=== PATIENT | female | born 1960 ===

== ENCOUNTER 2018-11-11 14:29 | Inpatient (IN) | payer MEDICAID ==
[~2018-11-11] VITALS: Ht 157.5 cm; Wt 85.5 kg
[~2018-11-11 14:29] MED LIST: ALBU8.5H8 INH; ASPI-496 PO; CETI10TA18 PO; IPRA4AER INH; LAMO25TA52 PO
--- NOTE | 2018-11-11 14:33 | NUR ---
PT C/O PAIN IN THE RIGHT LOWER ABD AND RIGHT LOWER BACK WOTH N/V THAT STARTED YESTERDAY
--- NOTE | 2018-11-11 14:43 | NUR ---
PT STATE SHE WAS AT [facility] YESTERDAY AND WAS DIAGNOSED WITH KIDNEY STONES. SHE STATES [facility] GAVE HER A RX FOR IBUPROFEN FOR PAIN BUT HASNT BEEN ABLE TO GO TO THE PHARMACY TO FILL IT.
[2018-11-11] MEDS ORDERED: KETOROLAC 60 MG/2 ML IM ONE (15:00)
[2018-11-11] MEDS ORDERED: KETOROLAC 30 MG/1 ML ONE (15:00)
--- NOTE | 2018-11-11 15:09 | NUR ---
pt ambulatory to bathroom with steady gait. pt medicated for pain per emar.
[2018-11-11 15:33] LABS: BASOPHILS # (AUTO) 0.02 x10^3/uL (0-0.1); BASOPHILS % (AUTO) 0 % (0-1); EOSINOPHILS % (AUTO) 0 % (1-7); LYMPHOCYTES % (AUTO) 15 % (22-44); MD NO; MEAN CORPUSCULAR HEMOGLOBIN 28.7 pg (27.0-34.8); MEAN CORPUSCULAR HGB CONC 32.6 g/dL (32.4-35.8); MEAN CORPUSCULAR VOLUME 88.1 fL (80-100); MEAN PLATELET VOLUME 8.9 fL (7.4-10.4); MONOCYTES # (AUTO) 1.44 x10^3/uL (0.2-0.8); MONOCYTES % (AUTO) 16 % (2-9); NEUTROPHILS # (AUTO) 6.05 x10^3/uL (1.8-6.8); NEUTROPHILS % (AUTO) 69 % (42-75); PLATELET COUNT 163 x10^3/uL (130-400); RED BLOOD COUNT 4.86 x10^6/uL (3.82-5.3); RED CELL DISTRIBUTION WIDTH 14.7 % (9.6-15.2)
[2018-11-11 15:38] LABS: MICROSCOPIC AUTO
[2018-11-11 15:41] LABS: CULTURE INDICATED? YES
[2018-11-11 15:41] LABS: ANION GAP 7 mmol/L (5-15); CALCIUM 8.6 mg/dL (8.5-10.1); CHLORIDE 106 mmol/L (98-107); CREATININE 0.84 mg/dL (0.55-1.02)
--- NOTE | 2018-11-11 15:54 | NUR ---
PT RESTING ON GURNEY. REPORTS PAIN HAS IMPROVED FROM 8/10 TO 0/10.
[2018-11-11] MEDS ORDERED: SODIUM CHLORIDE FLUSH 10ML SYR IVF ONE (17:00)
[2018-11-11] MEDS ORDERED: CEFTRIAXONE PMX 1GM/50ML 50 ML IV ONE (17:00)
--- NOTE | 2018-11-11 17:06 | NUR ---
pt ambulatory to and from ed restroom in NAD, pt to CT at this time
[2018-11-11] MEDS ORDERED: CEFTRIAXONE PMX 1GM/50ML 50 ML ONE (17:32)
--- NOTE | 2018-11-11 18:02 | NUR ---
PIV placed. pt tolerated procedure well. medicated per emar. pain is reported as 0/10. pt to be admitted.
--- NOTE | 2018-11-11 19:12 | NUR ---
report to surgery
[2018-11-11] MEDS ORDERED: HYDROmorphone 2 MG/ML, 1ML IVPush PRN (20:00)
[2018-11-11] MEDS ORDERED: ONDANSETRON 2MG/ML, 2ML IV PRN (20:00)
[2018-11-11] MEDS ORDERED: FENTANYL PF 100 MCG/2ML IV PRN (20:00)
[2018-11-11] MEDS ORDERED: LABETALOL 5MG/ML, 20ML IV PRN (20:00)
[2018-11-11] MEDS ORDERED: MEPERIDINE/PF 25MG/0.5ML IVPush PRN (20:00)
[2018-11-11] MEDS ORDERED: ACETAMINOPHEN 325 MG TABLET PO PRN (20:00)
[2018-11-11] MEDS ORDERED: OXYcodone 5 MG/5 ML ORAL.SOL UDC PO PRN (20:00)
[2018-11-11] MEDS ORDERED: PROMETHAZINE 25 MG/ML, 1ML IV PRN (20:00)
[2018-11-11] MEDS ORDERED: hydrALAzine 20 MG/ML, 1ML IV PRN (20:00)
[2018-11-11] MEDS ORDERED: MIDAZOLAM 1 MG/ML, 2ML ONE (20:16)
[2018-11-11] MEDS ORDERED: FENTANYL PF 100 MCG/2ML ONE (20:16)
[2018-11-11] MEDS ORDERED: DEXAMETHASONE 4 MG/ML, 1ML ONE (20:30)
[2018-11-11] MEDS ORDERED: SUCCINYLCHOLINE 20 MG/ML, 10ML ONE (20:40)
[2018-11-11] MEDS ORDERED: PROPOFOL 10 MG/ML, 20ML ONE (20:40)
[2018-11-11] MEDS ORDERED: METOPROLOL 1 MG/ML, 5ML ONE (20:40)
[2018-11-11] MEDS ORDERED: ROCURONIUM 10MG/ML,5ML ONE (20:40)
[2018-11-11] MEDS ORDERED: ONDANSETRON 2MG/ML, 2ML ONE (20:50)
[2018-11-11] MEDS ORDERED: OXYcodone 5 MG/5 ML ORAL.SOL UDC ONE (21:59)
[2018-11-11] MEDS ORDERED: ACETAMINOPHEN 650 MG/20.3 ML UDC ONE (22:00)
[2018-11-11 22:55] VITALS: BP 119/76
[2018-11-11] MEDS: SODIUM CHLORIDE 0.9% 1,000 ML IV SCH (23:16)
[2018-11-12] VITALS: BP 123/71
[2018-11-12 00:44] LABS: AMPHETAMINE SCREEN, URINE Negative (Negative); BARBITURATE SCREEN, URINE Negative (Negative); BENZODIAZEPINE SCREEN, URINE Positive (Negative); CANNABINOID SCREEN, URINE Negative (Negative); COCAINE SCREEN, URINE Negative (Negative); METHADONE SCREEN, URINE Negative (Negative); OPIATE SCREEN, URINE Positive (Negative)
[2018-11-12] MEDS: SODIUM CHLORIDE 0.9% 1,000 ML IV SCH ×3 (05:22→22:59)
[2018-11-12 05:27] LABS: BASOPHILS # (AUTO) 0.02 x10^3/uL (0-0.1); BASOPHILS % (AUTO) 0 % (0-1); EOSINOPHILS % (AUTO) 0 % (1-7); LYMPHOCYTES # (AUTO) 0.73 x10^3/uL (1-3.4); LYMPHOCYTES % (AUTO) 9 % (22-44); MD NO; MEAN CORPUSCULAR HEMOGLOBIN 28.8 pg (27.0-34.8); MEAN CORPUSCULAR HGB CONC 32.5 g/dL (32.4-35.8); MEAN CORPUSCULAR VOLUME 88.4 fL (80-100); MEAN PLATELET VOLUME 8.6 fL (7.4-10.4); MONOCYTES # (AUTO) 0.96 x10^3/uL (0.2-0.8); MONOCYTES % (AUTO) 12 % (2-9); NEUTROPHILS # (AUTO) 6.14 x10^3/uL (1.8-6.8); NEUTROPHILS % (AUTO) 78 % (42-75); PLATELET COUNT 150 x10^3/uL (130-400); RED BLOOD COUNT 4.46 x10^6/uL (3.82-5.3)
[2018-11-12 05:36] LABS: ANION GAP 3 mmol/L (5-15); CALCIUM 8.5 mg/dL (8.5-10.1); CHLORIDE 111 mmol/L (98-107); CREATININE 0.73 mg/dL (0.55-1.02)
[2018-11-12 05:48] LABS: HEMOGLOBIN A1C 6.2 % (4.2-6.3)
[2018-11-12 07:08] VITALS: BP 124/74
[2018-11-12] MEDS: CEFTRIAXONE PMX 1GM/50ML 50 ML IV SCH (10:20)
[2018-11-12 14:00] VITALS: BP 118/65
[2018-11-12 18:54] VITALS: BP 156/71
[2018-11-13 02:18] VITALS: BP 139/73
[2018-11-13] MEDS: SODIUM CHLORIDE 0.9% 1,000 ML IV SCH (05:24)
[2018-11-13 06:52] VITALS: BP 132/88
[2018-11-13] MEDS: CEFTRIAXONE PMX 1GM/50ML 50 ML IV SCH (10:09)
[2018-11-13] MEDS ORDERED: CEFD300C37 PO (12:01)
[2018-11-13 12:16] VITALS: BP 146/85
[2018-11-13] MEDS ORDERED: SODIUM CHLORIDE 0.9% 1,000 ML IV SCH (18:50)
== END 2018-11-13 12:55 | disposition home or self-care (01) | DRG 661 ==
LOC: ED 18:07 → EDIP 18:37 → 4NOR 22:17 → DCLOUNGE 11-13 12:38
PROVIDERS: ADMIT Internal Medicine; ATTEND Internal Medicine
PROC: 0TC78ZZ Extirpation of Matter from Left Ureter, Via Natural or Artificial Opening Endoscopic (ICD-10-PCS; 2018-11-11)
PROC: 0T778DZ Dilation of Left Ureter with Intraluminal Device, Via Natural or Artificial Opening Endoscopic (ICD-10-PCS; principal; 2018-11-11 19:00)
DX: N13.6 Pyonephrosis (principal); E11.9 Type 2 diabetes mellitus without complications; F15.10 Other stimulant abuse, uncomplicated; F17.210 Nicotine dependence, cigarettes, uncomplicated; F41.1 Generalized anxiety disorder; Z88.0 Allergy status to penicillin
CPT/HCPCS: 36415; 74018; 74176; 76000; 80048; 80307; 81001; 82040; 82360; 83036; 85025; 87077; 87086; 87186; 88300; 96372; 99285; C1726; G0378; J0696; J1100; J1885; J2250; J2405; J2704; J3010; C1758; C1769; C2617; J0330; J7030

== ENCOUNTER 2018-11-17 05:57 | Emergency (ER) | payer MEDICAID ==
[~2018-11-17] VITALS: Ht 157.5 cm; Wt 85.0 kg
[~2018-11-17 05:57] MED LIST changes: +CEFD300C37 PO
[2018-11-17 06:06] VITALS: BP 142/92
[2018-11-17] MEDS ORDERED: KETOROLAC 30 MG/1 ML ONE (06:12)
--- NOTE | 2018-11-17 06:15 | NUR ---
assessment made. seen by ERP. orders made.
[2018-11-17] MEDS ORDERED: KETOROLAC 30 MG/1 ML IM ONE (06:30)
--- NOTE | 2018-11-17 06:30 | NUR ---
patient medicated for pain. urine sent to lab.
[2018-11-17 06:32] LABS: BASOPHILS # (AUTO) 0.02 x10^3/uL (0-0.1); BASOPHILS % (AUTO) 0 % (0-1); EOSINOPHILS # (AUTO) 0.22 x10^3/uL (0-0.4); EOSINOPHILS % (AUTO) 3 % (1-7); LYMPHOCYTES # (AUTO) 1.37 x10^3/uL (1-3.4); LYMPHOCYTES % (AUTO) 21 % (22-44); MD NO; MEAN CORPUSCULAR HEMOGLOBIN 28.8 pg (27.0-34.8); MEAN CORPUSCULAR HGB CONC 32.4 g/dL (32.4-35.8); MEAN CORPUSCULAR VOLUME 88.8 fL (80-100); MEAN PLATELET VOLUME 8.5 fL (7.4-10.4); MONOCYTES # (AUTO) 1.27 x10^3/uL (0.2-0.8); MONOCYTES % (AUTO) 19 % (2-9); NEUTROPHILS # (AUTO) 3.79 x10^3/uL (1.8-6.8); NEUTROPHILS % (AUTO) 57 % (42-75); PLATELET COUNT 274 x10^3/uL (130-400); RED BLOOD COUNT 4.96 x10^6/uL (3.82-5.3); RED CELL DISTRIBUTION WIDTH 14.1 % (9.6-15.2)
--- NOTE | 2018-11-17 06:35 | NUR ---
labor operator at bedside for blood draw.
[2018-11-17 06:42] LABS: ALBUMIN 3.1 g/dL (3.4-5.0); ANION GAP 6 mmol/L (5-15); CALCIUM 8.5 mg/dL (8.5-10.1); CHLORIDE 108 mmol/L (98-107); CREATININE 0.74 mg/dL (0.55-1.02)
[2018-11-17 06:48] LABS: CULTURE INDICATED? YES; MICROSCOPIC INDICATED
--- NOTE | 2018-11-17 06:58 | NUR ---
Report from Rafa POWELL. Pt resting in bed, denies needs.
== END 2018-11-17 08:05 ==
LOC: ED 07:59
DX: M13.832 Other specified arthritis, left wrist (principal); M13.831 Other specified arthritis, right wrist; N39.0 Urinary tract infection, site not specified; Z87.891 Personal history of nicotine dependence
CPT/HCPCS: 36415; 80048; 81001; 82040; 85025; 87086; 87106; 96372; 99283; J1885

== ENCOUNTER → 2020-02-23 | Outpatient (CLI) | payer MEDICAID ==
[~2020-02-23] MED LIST changes: +OMNIPAQUE 350 MG/ML, 100ML BOTTLE ONE
== END | disposition home or self-care (01) ==
LOC: CFH 11:46
PROVIDERS: ATTEND Surgery
DX: K76.0 Fatty (change of) liver, not elsewhere classified (principal); K57.30 Diverticulosis of large intestine without perforation or abscess without bleeding; K43.9 Ventral hernia without obstruction or gangrene
CPT/HCPCS: 74177; 82565; Q9967

== ENCOUNTER 2020-04-06 20:03 | Inpatient (IN) | payer MEDICAID ==
[~2020-04-06] VITALS: Ht 157.5 cm; Wt 79.6 kg
[~2020-04-06 20:03] MED LIST changes: -OMNIPAQUE 350 MG/ML, 100ML BOTTLE ONE
[2020-04-06] MEDS ORDERED: ONDANSETRON ODT 4 MG PO PRN (21:00)
[2020-04-06] MEDS ORDERED: ACETAMINOPHEN 325 MG TABLET PO PRN (21:00)
[2020-04-06] MEDS ORDERED: POLYETHYLENE GLYCOL 17 GM PACKET PO PRN (21:00)
[2020-04-06] MEDS ORDERED: DOCUSATE 100 MG CAPSULE PO PRN (21:00)
[2020-04-06] MEDS ORDERED: BISACODYL 10 MG SUPP PR PRN (21:00)
[2020-04-06] MEDS ORDERED: QUETIAPINE 25MG TABLET PO PRN (21:30)
[2020-04-07 03:08] VITALS: BP 159/94
[2020-04-07 06:23] VITALS: BP 136/87
[2020-04-07 07:02] LABS: ALBUMIN 3.4 g/dL (3.4-5.0); ANION GAP 7 mmol/L (5-15); CALCIUM 8.7 mg/dL (8.5-10.1); CHLORIDE 109 mmol/L (98-107)
[2020-04-07 07:06] LABS: MEAN CORPUSCULAR HEMOGLOBIN 29.3 pg (27.0-34.8); MEAN CORPUSCULAR HGB CONC 33.3 g/dL (32.4-35.8); MEAN PLATELET VOLUME 8.5 fL (7.4-10.4); PLATELET COUNT 212 x10^3/uL (130-400); RED BLOOD COUNT 4.77 x10^6/uL (3.82-5.3); RED CELL DISTRIBUTION WIDTH 13.4 % (9.6-15.2)
[2020-04-07 07:27] LABS: ALANINE AMINOTRANSFERASE 52 U/L (12-78); ALKALINE PHOSPHATASE 111 U/L (45-117); BILIRUBIN,TOTAL 1.3 mg/dL (0.2-1.0); CHOL/HDL RATIO 3.1; CHOLESTEROL, TOTAL 160 mg/dL (140-239); FREE T4 (FREE THYROXINE) 1.44 ng/dL (0.76-1.46); HDL CHOL % 33 % (28-40); HDL CHOLESTEROL (DIRECT) 52 mg/dL (40-60); LDL CHOLESTEROL,CALCULATED 90 mg/dL (54-169); LDL/HDL RATIO 1.7 (0.5-3.0); TOTAL PROTEIN 7.7 g/dL (6.4-8.2); TRIGLYCERIDES 91 mg/dL (50-200); VLDL CHOLESTEROL 18 mg/dL (0-25)
[2020-04-07 07:50] LABS: MD YES
[2020-04-07 07:52] LABS: EOS% (MANUAL) 6 % (1-7); LYMPH#(MANUAL) 1.55 x10^3/uL (1-3.4); LYMPHS% (MANUAL) 47 % (22-44); MONOS#(MANUAL) 0.79 x10^3/uL (0.3-2.7); MONOS% (MANUAL) 24 % (2-9); SEG#(MANUAL) 0.76 x10^3/uL (1.8-6.8); SEGS% (MANUAL) 23 % (42-75)
[2020-04-07 07:56] LABS: <PLATELET ESTIMATE> ADEQUATE; <PLT MORPHOLOGY> NORMAL PLT MORPH; <RBC MORPHOLOGY> NORMAL
[2020-04-07] MEDS: LAMOTRIGINE 25 MG TABLET PO SCH ×2 (08:18→21:00)
[2020-04-07] MEDS ORDERED: IBUP-1222 PO (11:22)
[2020-04-07] MEDS ORDERED: FLUT16SP24 INH (11:22)
[2020-04-07] MEDS ORDERED: LAMO5TB.2 PO (15:45)
[2020-04-07 20:32] VITALS: BP 125/80
[2020-04-07] MEDS: ZIPRASIDONE 20MG CAPSULE PO SCH (21:00)
[2020-04-08 06:35] LABS: MICROSCOPIC AUTO
[2020-04-08 07:35] LABS: MEAN CORPUSCULAR HEMOGLOBIN 29.2 pg (27.0-34.8); MEAN CORPUSCULAR HGB CONC 33.1 g/dL (32.4-35.8); MEAN PLATELET VOLUME 8.2 fL (7.4-10.4); PLATELET COUNT 209 x10^3/uL (130-400); RED BLOOD COUNT 4.86 x10^6/uL (3.82-5.3); RED CELL DISTRIBUTION WIDTH 13.4 % (9.6-15.2)
[2020-04-08 07:43] VITALS: BP 148/93
[2020-04-08] MEDS: LAMOTRIGINE 25 MG TABLET PO SCH ×2 (08:22→21:31)
[2020-04-08] MEDS: ZIPRASIDONE 20MG CAPSULE PO SCH ×2 (08:22→21:31)
[2020-04-08 08:51] LABS: MD YES
[2020-04-08 09:00] LABS: BAND#(MANUAL) 0.07 x10^3/uL; BANDS%(MANUAL) 2 % (0-7); BASOS#(MANUAL) 0.03 x10^3/uL (0-0.1); BASOS% (MANUAL) 1 % (0-1); EOS% (MANUAL) 6 % (1-7); LYMPH#(MANUAL) 1.58 x10^3/uL (1-3.4); LYMPHS% (MANUAL) 48 % (22-44); MONOS#(MANUAL) 0.53 x10^3/uL (0.3-2.7); MONOS% (MANUAL) 16 % (2-9); REACTIVE LYMPHS # (MANUAL) 0.17 x10^3/uL (0-0); REACTIVE LYMPHS % (MANUAL) 5 % (0-0); SEG#(MANUAL) 0.73 x10^3/uL (1.8-6.8); SEGS% (MANUAL) 22 % (42-75)
[2020-04-08 09:05] LABS: <RBC MORPHOLOGY> NORMAL
[2020-04-08 09:06] LABS: <PLATELET ESTIMATE> ADEQUATE; <PLT MORPHOLOGY> NORMAL PLT MORPH
[2020-04-08] MEDS: CEFDINIR 300 MG CAPSULE PO SCH ×2 (10:11→21:30)
[2020-04-08 19:05] VITALS: BP 114/69
[2020-04-09 06:58] LABS: BASOPHILS % (AUTO) 1 % (0-1); EOSINOPHILS % (AUTO) 6 % (1-7); LYMPHOCYTES % (AUTO) 57 % (22-44); MEAN CORPUSCULAR HEMOGLOBIN 29.2 pg (27.0-34.8); MEAN CORPUSCULAR HGB CONC 33.2 g/dL (32.4-35.8); MEAN PLATELET VOLUME 8.3 fL (7.4-10.4); MONOCYTES % (AUTO) 23 % (2-9); NEUTROPHILS % (AUTO) 13 % (42-75); PLATELET COUNT 217 x10^3/uL (130-400); RED BLOOD COUNT 4.88 x10^6/uL (3.82-5.3); RED CELL DISTRIBUTION WIDTH 13.5 % (9.6-15.2)
[2020-04-09 07:28] VITALS: BP 142/87
[2020-04-09 07:32] LABS: MD SCAN
[2020-04-09] MEDS: ZIPRASIDONE 20MG CAPSULE PO SCH ×2 (09:25→20:04)
[2020-04-09] MEDS: CEFDINIR 300 MG CAPSULE PO SCH ×2 (09:25→20:04)
[2020-04-09] MEDS: LAMOTRIGINE 25 MG TABLET PO SCH ×2 (09:25→20:04)
[2020-04-09 20:00] VITALS: BP 147/94
[2020-04-10 06:30] LABS: BASOPHILS % (AUTO) 1 % (0-1); EOSINOPHILS % (AUTO) 6 % (1-7); LYMPHOCYTES % (AUTO) 52 % (22-44); MEAN CORPUSCULAR HEMOGLOBIN 29.4 pg (27.0-34.8); MEAN CORPUSCULAR HGB CONC 33.3 g/dL (32.4-35.8); MEAN PLATELET VOLUME 8.5 fL (7.4-10.4); MONOCYTES % (AUTO) 22 % (2-9); NEUTROPHILS % (AUTO) 19 % (42-75); PLATELET COUNT 238 x10^3/uL (130-400); RED BLOOD COUNT 5.11 x10^6/uL (3.82-5.3); RED CELL DISTRIBUTION WIDTH 13.3 % (9.6-15.2)
[2020-04-10 07:02] LABS: MD SCAN
[2020-04-10 07:32] VITALS: BP 126/75
[2020-04-10] MEDS: ZIPRASIDONE 20MG CAPSULE PO SCH ×2 (08:11→20:21)
[2020-04-10] MEDS: CEFDINIR 300 MG CAPSULE PO SCH ×2 (08:11→20:21)
[2020-04-10] MEDS: LAMOTRIGINE 25 MG TABLET PO SCH (08:11)
[2020-04-10 19:30] VITALS: BP 143/98
[2020-04-11 06:40] LABS: BASOPHILS % (AUTO) 1 % (0-1); EOSINOPHILS % (AUTO) 7 % (1-7); LYMPHOCYTES % (AUTO) 52 % (22-44); MEAN CORPUSCULAR HEMOGLOBIN 29.4 pg (27.0-34.8); MEAN CORPUSCULAR HGB CONC 33.4 g/dL (32.4-35.8); MEAN PLATELET VOLUME 8.7 fL (7.4-10.4); MONOCYTES % (AUTO) 24 % (2-9); NEUTROPHILS % (AUTO) 17 % (42-75); PLATELET COUNT 248 x10^3/uL (130-400); RED BLOOD COUNT 5.23 x10^6/uL (3.82-5.3); RED CELL DISTRIBUTION WIDTH 13.4 % (9.6-15.2)
[2020-04-11 07:58] VITALS: BP 119/86
[2020-04-11 08:22] LABS: MD SCAN
[2020-04-11] MEDS: ZIPRASIDONE 20MG CAPSULE PO SCH ×2 (09:13→20:25)
[2020-04-11] MEDS: CEFDINIR 300 MG CAPSULE PO SCH ×2 (09:13→20:26)
[2020-04-11 20:28] VITALS: BP 132/94
[2020-04-12 07:27] VITALS: BP 148/83
[2020-04-12] MEDS: CEFDINIR 300 MG CAPSULE PO SCH ×2 (08:09→20:32)
[2020-04-12] MEDS: ZIPRASIDONE 20MG CAPSULE PO SCH ×2 (08:09→20:32)
[2020-04-12 10:12] LABS: BASOPHILS % (AUTO) 1 % (0-1); EOSINOPHILS % (AUTO) 3 % (1-7); LYMPHOCYTES % (AUTO) 46 % (22-44); MEAN CORPUSCULAR HEMOGLOBIN 29.1 pg (27.0-34.8); MEAN CORPUSCULAR HGB CONC 33.2 g/dL (32.4-35.8); MEAN PLATELET VOLUME 8.6 fL (7.4-10.4); MONOCYTES % (AUTO) 20 % (2-9); NEUTROPHILS % (AUTO) 30 % (42-75); PLATELET COUNT 237 x10^3/uL (130-400); RED CELL DISTRIBUTION WIDTH 13.2 % (9.6-15.2)
[2020-04-12 10:55] LABS: MD SCAN
[2020-04-12 19:44] VITALS: BP 143/88
[2020-04-13 05:47] LABS: BASOPHILS % (AUTO) 1 % (0-1); EOSINOPHILS % (AUTO) 6 % (1-7); LYMPHOCYTES % (AUTO) 51 % (22-44); MEAN CORPUSCULAR HEMOGLOBIN 29.1 pg (27.0-34.8); MEAN CORPUSCULAR HGB CONC 33.5 g/dL (32.4-35.8); MEAN PLATELET VOLUME 8.5 fL (7.4-10.4); MONOCYTES % (AUTO) 24 % (2-9); NEUTROPHILS % (AUTO) 19 % (42-75); PLATELET COUNT 241 x10^3/uL (130-400); RED BLOOD COUNT 5.33 x10^6/uL (3.82-5.3); RED CELL DISTRIBUTION WIDTH 13.4 % (9.6-15.2)
[2020-04-13 06:23] LABS: MD SCAN
[2020-04-13 07:21] VITALS: BP 148/92
[2020-04-13] MEDS ORDERED: ZIPRASIDONE 20MG CAPSULE ONE ×2 (08:00→20:21)
[2020-04-13] MEDS ORDERED: CEFDINIR 300 MG CAPSULE ONE ×2 (08:00→20:21)
[2020-04-13] MEDS: CEFDINIR 300 MG CAPSULE PO SCH ×2 (08:14→20:26)
[2020-04-13] MEDS: ZIPRASIDONE 20MG CAPSULE PO SCH ×2 (08:15→20:27)
[2020-04-13 13:31] LABS: MICROSCOPIC NOT IND
[2020-04-13] MEDS ORDERED: ZIPR20CA2 PO (15:39)
[2020-04-13 15:41] LABS: ALANINE AMINOTRANSFERASE 46 U/L (12-78); ALBUMIN 3.4 g/dL (3.4-5.0); ANION GAP 5 mmol/L (5-15); CHLORIDE 105 mmol/L (98-107)
[2020-04-13 15:44] LABS: ALKALINE PHOSPHATASE 119 U/L (45-117); BILIRUBIN,TOTAL 1.1 mg/dL (0.2-1.0); TOTAL PROTEIN 7.8 g/dL (6.4-8.2)
[2020-04-13 19:57] VITALS: BP 150/73
[2020-04-14 07:00] VITALS: BP 145/82
[2020-04-14] MEDS ORDERED: ZIPRASIDONE 20MG CAPSULE ONE (09:47)
[2020-04-14] MEDS: ZIPRASIDONE 20MG CAPSULE PO SCH (09:50)
== END 2020-04-14 13:00 | disposition home or self-care (01) | DRG 753 ==
LOC: 3E 20:59 → UNDODISIN 04-12 09:20
PROVIDERS: ADMIT Psychiatry & Neurology Psychosomatic Medicine; ATTEND Psychiatry & Neurology Psychosomatic Medicine
DX: F31.2 Bipolar disorder, current episode manic severe with psychotic features (principal); E11.9 Type 2 diabetes mellitus without complications; D25.9 Leiomyoma of uterus, unspecified; B96.20 Unspecified Escherichia coli [E. coli] as the cause of diseases classified elsewhere; F17.200 Nicotine dependence, unspecified, uncomplicated; K44.9 Diaphragmatic hernia without obstruction or gangrene; N39.0 Urinary tract infection, site not specified; D70.9 Neutropenia, unspecified; Z88.0 Allergy status to penicillin; Z91.040 Latex allergy status; Z82.49 Family history of ischemic heart disease and other diseases of the circulatory system; Z83.6 Family history of other diseases of the respiratory system; Z83.3 Family history of diabetes mellitus
CPT/HCPCS: 36415; 71045; 74018; 80053; 80061; 81001; 81003; 82140; 82607; 84439; 84443; 85025; 87077; 87086; 87186; 93005